=== PATIENT | female | born 1960 | race Caucasian/White ===

== ENCOUNTER 2016-03-26 09:22 | Emergency (ER) | payer SELFPAY ==
[~2016-03-26] VITALS: Ht 157.5 cm; Wt 55.0 kg
[2016-03-26 11:49] VITALS: BP 182/89
== END 2016-03-26 12:11 | disposition home or self-care (01) ==
LOC: EMS 09:24
DX: J06.9 Acute upper respiratory infection, unspecified (principal); I10 Essential (primary) hypertension; F17.210 Nicotine dependence, cigarettes, uncomplicated; F15.90 Other stimulant use, unspecified, uncomplicated; Z88.0 Allergy status to penicillin
CPT/HCPCS: 99283; 99406

== ENCOUNTER 2017-02-13 17:47 | Emergency (ER) | payer SELFPAY ==
[~2017-02-13] VITALS: Ht 160 cm; Wt 50.0 kg
[2017-02-13 19:02] LABS: INFLUENZA TYPE B NEGATIVE FOR TYPE B (NEGATIVE)
[2017-02-13 19:31] VITALS: BP 148/99
== END 2017-02-13 21:22 | disposition home or self-care (01) ==
LOC: EMS 17:48
DX: J06.9 Acute upper respiratory infection, unspecified (principal); F15.90 Other stimulant use, unspecified, uncomplicated; F17.210 Nicotine dependence, cigarettes, uncomplicated; Z88.0 Allergy status to penicillin
CPT/HCPCS: 87804; 99284

== ENCOUNTER 2018-02-10 12:00 | Emergency (ER) | payer SELFPAY | END 2018-02-10 17:40 | disposition left against medical advice (07) | LOC: EMS 15:30 | DX: M79.89 Other specified soft tissue disorders (principal); Z53.21 Procedure and treatment not carried out due to patient leaving prior to being seen by health care provider ==

== ENCOUNTER 2018-06-22 20:24 | Inpatient (IN) | payer MEDICAID ==
[~2018-06-22] VITALS: Ht 162.6 cm; Wt 55.0 kg
[2018-06-22] MEDS ORDERED: GUAI600T30 PO (20:31)
[2018-06-22 21:21] LABS: BASOPHILS % (AUTO) 0.1 % (0.0-2.0); EOSINOPHILS % (AUTO) 0.2 % (1.0-6.0); HEMATOCRIT 39.9 % (36-46); HEMOGLOBIN 13.2 g/dL (12.0-16.0); LYMPHOCYTES # (AUTO) 2.4 K/uL (1.0-4.8); LYMPHOCYTES % (AUTO) 20.9 % (22.0-44.0); MEAN CORPUSCULAR HEMOGLOBIN 26.8 pg (26.0-34.0); MEAN CORPUSCULAR VOLUME 81 fL (80-100); MONOCYTES # (AUTO) 0.9 K/uL (0.1-1.0); MONOCYTES % (AUTO) 7.7 % (2.0-9.0); NEUTROPHILS % (AUTO) 71.1 % (40.0-70.0); PLATELET COUNT (AUTO) 322 K/uL (150-450); RED BLOOD CELL COUNT(AUTO) 4.91 MIL/uL (4.00-5.20); RED CELL DISTRIBUTION WIDTH 13.6 % (11.5-14.5)
[2018-06-22 21:30] LABS: ANION GAP 6 mmol/L (8-16); CALCIUM, TOTAL 9.6 mg/dL (8.8-10.5); CARBON DIOXIDE 29 mmol/L (22-29); CHLORIDE 101 mmol/L (98-107); CREATININE 0.57 mg/dL (0.60-1.30); GLOMERULAR FILTR. RATE CALC > 60 mL/min (>60); GLUCOSE,RANDOM 158 mg/dL (70-110); POTASSIUM 4.2 mmol/L (3.5-5.1); SODIUM SERUM 136 mmol/L (136-145); UREA NITROGEN, BLOOD 6 mg/dL (7-18)
[2018-06-22 21:37] LABS: ALANINE AMINOTRANSFERASE 19 U/L (12-78); ALBUMIN 2.7 g/dL (3.4-5.0); ALKALINE PHOSPHATASE 125 U/L (46-116); ASPARTATE AMINOTRANSFERASE 14 U/L (15-37); BILIRUBIN,TOTAL 0.3 mg/dL (0.1-1.0); TOTAL PROTEIN, SERUM 7.5 g/dL (6.4-8.2)
[2018-06-22 21:54] LABS: B-TYPE NATRIURETIC PEPTIDE 29 pg/mL (0-100)
[2018-06-22] MEDS ORDERED: SODIUM CHLORIDE 0.9% 1,000 ML IV ONE (22:00)
[2018-06-22] MEDS ORDERED: ACETAMINOPHEN 500 MG TABLET PO ONE (22:00)
[2018-06-22 22:20] LABS: INFLUENZA TYPE A NEGATIVE FOR TYPE A (NEGATIVE); INFLUENZA TYPE B NEGATIVE FOR TYPE B (NEGATIVE)
[2018-06-22] MEDS ORDERED: ALBUTEROL SULFATE 2.5 MG/0.5 ML NEB SOLUTION NEB ONE (22:30)
[2018-06-22] MEDS ORDERED: IPRATROPIUM BROMIDE 0.5 MG/2.5 ML NEB SOLUTION NEB ONE (22:30)
[2018-06-22] MEDS ORDERED: LEVOFLOXACIN 750 MG/D5% WATER 150 ML IV ONE (22:45)
[2018-06-22] MEDS ORDERED: IOVERSOL 350 MG/ML 100 ML VIAL ONE (22:50)
[2018-06-22] MEDS ORDERED: SODIUM CHLORIDE 0.9% 100 ML ONE (22:50)
[2018-06-23] MEDS ORDERED: SODIUM CHLORIDE 0.9% 1,000 ML IV ONE ×2 (03:00)
[2018-06-23] MEDS ORDERED: BISACODYL 10 MG RECTAL RECTAL SUPPOSITORY PR PRN (05:00)
[2018-06-23] MEDS ORDERED: MAGNESIUM HYDROXIDE SUSPENSION 30 ML UDCUP PO PRN (05:00)
[2018-06-23] MEDS ORDERED: ONDANSETRON HCL 4 MG/2 ML VIAL IVP PRN (05:00)
[2018-06-23] MEDS ORDERED: OxyCODONE HCL/ACETAMINOPHEN 5-325 MG TABLET PO PRN (05:00)
[2018-06-23] MEDS ORDERED: BENZOCAINE/MENTHOL LOZENGE MM PRN (05:00)
[2018-06-23] MEDS ORDERED: ALBUTEROL SULFATE 2.5 MG/0.5 ML NEB SOLUTION NEB PRN (05:00)
[2018-06-23] MEDS ORDERED: IPRATROPIUM BROMIDE 0.5 MG/2.5 ML NEB SOLUTION NEB PRN (05:00)
[2018-06-23] MEDS ORDERED: ZOLPIDEM TARTRATE 5 MG TABLET PO PRN (05:00)
[2018-06-23] MEDS ORDERED: MORPHINE SULFATE 2 MG/ML SYRINGE IVP PRN (05:00)
[2018-06-23 05:18] VITALS: BP 155/81
[2018-06-23 08:17] VITALS: BP 153/83
[2018-06-23] MEDS: HEPARIN SODIUM,PORCINE 5,000 UNITS/ML VIAL SQ SCH ×2 (08:29→21:26)
[2018-06-23] MEDS: FAMOTIDINE 20 MG TABLET PO SCH (08:29)
[2018-06-23 12:31] VITALS: BP 179/88
[2018-06-23] MEDS: AmLODIPine BESYLATE 10 MG TABLET PO SCH (14:49)
[2018-06-23] MEDS: ACETAMINOPHEN 325 MG TABLET PO PRN (15:37)
[2018-06-23 15:40] VITALS: BP 176/90
[2018-06-23] MEDS ORDERED: SODIUM CHLORIDE 0.9% 0 ML IV ONE (18:44)
[2018-06-23 18:49] LABS: APPEARANCE,URINE CLEAR (CLEAR); BILIRUBIN,URINE NEGATIVE (NEGATIVE); GLUCOSE, URINE (UA) NEGATIVE (NEGATIVE); KETONES,URINE NEGATIVE (NEGATIVE); LEUKOCYTE ESTERASE ,URINE NEGATIVE (NEGATIVE); NITRATE,URINE NEGATIVE (NEGATIVE); OCCULT BLOOD,URINE TRACE (NEGATIVE); PROTEIN,URINE NEGATIVE (NEGATIVE)
[2018-06-23 18:58] LABS: BACTERIA,URINE Rare /HPF (None Seen); SQUAMOUS EPITHELIAL CELL,UR Few /LPF (None Seen); WBC,URINE 0-2 /HPF (0-5)
[2018-06-23] MEDS ORDERED: VANCOMYCIN HCL 1.25 GM in DEXTROSE 5%-WATER 250 ML IV ONE (19:30)
[2018-06-23] MEDS ORDERED: SODIUM CHLORIDE 0.9% 500 ML IV ONE (19:53)
[2018-06-23 20:18] VITALS: BP 158/80
[2018-06-23] MEDS: DOXYCYCLINE HYCLATE 100 MG CAPSULE PO SCH (21:26)
[2018-06-23] MEDS: AZTREONAM 2 GM in DEXTROSE 5%-WATER 50 ML IV SCH (21:26)
[2018-06-23] MEDS ORDERED: LEVOFLOXACIN 750 MG/D5% WATER 150 ML IV SCH (23:00)
[2018-06-24 01:01] VITALS: BP 154/81
[2018-06-24] MEDS: AZTREONAM 2 GM in DEXTROSE 5%-WATER 50 ML IV SCH ×3 (02:53→20:10)
[2018-06-24] MEDS: ACETAMINOPHEN 325 MG TABLET PO PRN (04:43)
[2018-06-24 05:09] VITALS: BP 156/78
[2018-06-24 06:15] LABS: BASOPHILS % (AUTO) 0.3 % (0.0-2.0); HEMATOCRIT 39.8 % (36-46); HEMOGLOBIN 13.3 g/dL (12.0-16.0); LYMPHOCYTES # (AUTO) 2.5 K/uL (1.0-4.8); LYMPHOCYTES % (AUTO) 26.7 % (22.0-44.0); MEAN CORPUSCULAR HGB CONC 33.4 G/dL (31.0-37.0); MEAN CORPUSCULAR VOLUME 81 fL (80-100); MONOCYTES # (AUTO) 0.9 K/uL (0.1-1.0); MONOCYTES % (AUTO) 9.2 % (2.0-9.0); NEUTROPHILS # (AUTO) 5.8 K/uL (1.8-7.7); NEUTROPHILS % (AUTO) 62.8 % (40.0-70.0); PLATELET COUNT (AUTO) 293 K/uL (150-450); RED BLOOD CELL COUNT(AUTO) 4.92 MIL/uL (4.00-5.20); RED CELL DISTRIBUTION WIDTH 13.2 % (11.5-14.5)
[2018-06-24] MEDS: VANCOMYCIN HCL 750 MG in DEXTROSE 5%-WATER 250 ML IV SCH ×3 (06:20→22:41)
[2018-06-24 06:47] LABS: ALANINE AMINOTRANSFERASE 15 U/L (12-78); ALBUMIN 2.5 g/dL (3.4-5.0); ALKALINE PHOSPHATASE 111 U/L (46-116); ANION GAP 10 mmol/L (8-16); ASPARTATE AMINOTRANSFERASE 14 U/L (15-37); BILIRUBIN,TOTAL 0.4 mg/dL (0.1-1.0); CALCIUM, TOTAL 9.6 mg/dL (8.8-10.5); CARBON DIOXIDE 26 mmol/L (22-29); CHLORIDE 103 mmol/L (98-107); CREATININE 0.36 mg/dL (0.60-1.30); GLOMERULAR FILTR. RATE CALC > 60 mL/min (>60); GLUCOSE,RANDOM 110 mg/dL (70-110); PHOSPHORUS 3.4 mg/dL (2.5-4.9); POTASSIUM 3.3 mmol/L (3.5-5.1); SODIUM SERUM 139 mmol/L (136-145); TOTAL PROTEIN, SERUM 6.6 g/dL (6.4-8.2); UREA NITROGEN, BLOOD 10 mg/dL (7-18)
[2018-06-24 08:10] VITALS: BP 160/83
[2018-06-24] MEDS: DOXYCYCLINE HYCLATE 100 MG CAPSULE PO SCH ×2 (08:11→20:13)
[2018-06-24] MEDS: AmLODIPine BESYLATE 10 MG TABLET PO SCH (08:11)
[2018-06-24] MEDS: FAMOTIDINE 20 MG TABLET PO SCH (08:11)
[2018-06-24] MEDS: HEPARIN SODIUM,PORCINE 5,000 UNITS/ML VIAL SQ SCH ×2 (08:11→20:14)
[2018-06-24 10:16] LABS: HIV 1-2 SCREEN 4TH GEN W/RFLX Non Reactive (Non Reactive)
[2018-06-24] MEDS: LORazepam 2 MG/ML VIAL IVP PRN (11:31)
[2018-06-24 12:00] VITALS: BP 145/79
[2018-06-24 15:29] VITALS: BP 152/85
[2018-06-24] MEDS ORDERED: POTASSIUM CHLORIDE 20 MEQ ER TABLET PO PRN (19:30)
[2018-06-24] MEDS ORDERED: POTASSIUM CHL 10 MEQ/WATER 50 ML IV PRN (19:30)
[2018-06-24] MEDS ORDERED: MAGNESIUM SULFATE 2 GM/WATER 50 ML IV PRN (19:30)
[2018-06-24] MEDS ORDERED: MAGNESIUM SULFATE 4 GM/WATER 100 ML IV PRN (19:30)
[2018-06-24] MEDS: MAGNESIUM OXIDE 400 MG TABLET PO PRN ×2 (20:13→22:41)
[2018-06-24] MEDS: GuaiFENesin/D-METHORPHAN/PHENYLEPH 5 ML LIQUID ORAL.SYG PO PRN (20:15)
[2018-06-24 20:25] VITALS: BP 142/73
[2018-06-25 00:11] VITALS: BP 124/75
[2018-06-25] MEDS: AZTREONAM 2 GM in DEXTROSE 5%-WATER 50 ML IV SCH ×3 (03:29→18:53)
[2018-06-25 04:00] VITALS: BP 152/96
[2018-06-25] MEDS: MAGNESIUM OXIDE 400 MG TABLET PO PRN ×4 (04:54→20:08)
[2018-06-25] MEDS: VANCOMYCIN HCL 750 MG in DEXTROSE 5%-WATER 250 ML IV SCH (05:52)
[2018-06-25 06:30] LABS: ALBUMIN 2.2 g/dL (3.4-5.0); ANION GAP 8 mmol/L (8-16); CALCIUM, TOTAL 9.9 mg/dL (8.8-10.5); CARBON DIOXIDE 26 mmol/L (22-29); CHLORIDE 103 mmol/L (98-107); CREATININE 0.53 mg/dL (0.60-1.30); GLOMERULAR FILTR. RATE CALC > 60 mL/min (>60); GLUCOSE,RANDOM 232 mg/dL (70-110); POTASSIUM 3.7 mmol/L (3.5-5.1); SODIUM SERUM 137 mmol/L (136-145); UREA NITROGEN, BLOOD 10 mg/dL (7-18); VANCOMYCIN,RANDOM 8.9 mcg/mL (25.0-50.0)
[2018-06-25 07:44] VITALS: BP 133/79
[2018-06-25] MEDS: FAMOTIDINE 20 MG TABLET PO SCH (09:01)
[2018-06-25] MEDS: HEPARIN SODIUM,PORCINE 5,000 UNITS/ML VIAL SQ SCH ×2 (09:01→20:09)
[2018-06-25] MEDS: AmLODIPine BESYLATE 10 MG TABLET PO SCH (09:01)
[2018-06-25] MEDS: DOXYCYCLINE HYCLATE 100 MG CAPSULE PO SCH ×2 (09:01→20:08)
[2018-06-25] MEDS: GuaiFENesin/D-METHORPHAN/PHENYLEPH 5 ML LIQUID ORAL.SYG PO PRN ×2 (11:01→22:50)
[2018-06-25 11:27] LABS: LEGIONELLA PNEUMO AG URINE Negative (Negative); ORGANISM ID Not indicated.; S PNEUMO SOURCE Urine; STREP PNEUMONIAE AG URINE Negative (Negative); STREP.PNEUMO BODY FLUID CULT. Not Indicated
[2018-06-25 11:37] VITALS: BP 155/76
[2018-06-25] MEDS: VANCOMYCIN HCL 1 GM/D5% WATER 200 ML IV SCH ×2 (14:42→22:36)
[2018-06-25 16:03] VITALS: BP 137/73
[2018-06-25 20:17] VITALS: BP 156/75
[2018-06-26 01:11] LABS: MTB NUCL.ACID AMPLIF W/O AFBCS Negative (Negative)
[2018-06-26] MEDS: AZTREONAM 2 GM in DEXTROSE 5%-WATER 50 ML IV SCH ×3 (03:00→18:59)
[2018-06-26 04:00] VITALS: BP 138/71
[2018-06-26 06:49] LABS: ANION GAP 9 mmol/L (8-16); CALCIUM, TOTAL 10.6 mg/dL (8.8-10.5); CARBON DIOXIDE 27 mmol/L (22-29); CHLORIDE 104 mmol/L (98-107); CREATININE 0.47 mg/dL (0.60-1.30); GLOMERULAR FILTR. RATE CALC > 60 mL/min (>60); GLUCOSE,RANDOM 109 mg/dL (70-110); POTASSIUM 4.1 mmol/L (3.5-5.1); SODIUM SERUM 140 mmol/L (136-145); UREA NITROGEN, BLOOD 12 mg/dL (7-18)
[2018-06-26] MEDS: VANCOMYCIN HCL 1 GM/D5% WATER 200 ML IV SCH ×3 (07:00→22:03)
[2018-06-26 07:25] VITALS: BP 156/82
[2018-06-26] MEDS: DOXYCYCLINE HYCLATE 100 MG CAPSULE PO SCH ×2 (09:02→22:03)
[2018-06-26] MEDS: FAMOTIDINE 20 MG TABLET PO SCH (09:02)
[2018-06-26] MEDS: AmLODIPine BESYLATE 10 MG TABLET PO SCH (09:02)
[2018-06-26] MEDS: GuaiFENesin/D-METHORPHAN/PHENYLEPH 5 ML LIQUID ORAL.SYG PO PRN ×2 (09:03→15:41)
[2018-06-26] MEDS: HEPARIN SODIUM,PORCINE 5,000 UNITS/ML VIAL SQ SCH ×2 (09:03→22:09)
[2018-06-26 11:48] VITALS: BP 133/78
[2018-06-26 14:07] LABS: QUANTIFERON+, Nil Value 0.02 IU/mL; QUANTIFERON+,Mitogen Value >10.00 IU/mL; QUANTIFERON+,TB1 Antigen Value 0.02 IU/mL; QUANTIFERON+,TB2 Antigen Value 0.02 IU/mL; QUANTIFERON, TB GOLD PLUS Negative (Negative)
[2018-06-26 15:31] VITALS: BP 113/64
[2018-06-26 20:12] VITALS: BP 142/70
[2018-06-26] MEDS: LORazepam 2 MG/ML VIAL IVP PRN (23:43)
[2018-06-27 00:28] VITALS: BP 138/61
[2018-06-27] MEDS: AZTREONAM 2 GM in DEXTROSE 5%-WATER 50 ML IV SCH ×3 (03:00→18:24)
[2018-06-27 05:02] VITALS: BP 149/75
[2018-06-27] MEDS ORDERED: SODIUM CHLORIDE 0.9% 500 ML IV ONE (05:40)
[2018-06-27] MEDS: VANCOMYCIN HCL 1 GM/D5% WATER 200 ML IV SCH (06:00)
[2018-06-27 07:15] VITALS: BP 130/63
[2018-06-27 07:27] LABS: ANION GAP 9 mmol/L (8-16); CALCIUM, TOTAL 10.1 mg/dL (8.8-10.5); CARBON DIOXIDE 27 mmol/L (22-29); CHLORIDE 104 mmol/L (98-107); GLOMERULAR FILTR. RATE CALC > 60 mL/min (>60); GLUCOSE,RANDOM 151 mg/dL (70-110); POTASSIUM 3.6 mmol/L (3.5-5.1); SODIUM SERUM 140 mmol/L (136-145); UREA NITROGEN, BLOOD 14 mg/dL (7-18); VANCOMYCIN,RANDOM 12.7 mcg/mL (25.0-50.0)
[2018-06-27] MEDS: AmLODIPine BESYLATE 10 MG TABLET PO SCH (09:40)
[2018-06-27] MEDS: HEPARIN SODIUM,PORCINE 5,000 UNITS/ML VIAL SQ SCH ×2 (09:40→21:20)
[2018-06-27] MEDS: DOXYCYCLINE HYCLATE 100 MG CAPSULE PO SCH ×2 (09:40→21:20)
[2018-06-27] MEDS: FAMOTIDINE 20 MG TABLET PO SCH (09:40)
[2018-06-27 12:10] VITALS: BP 160/81
[2018-06-27 13:00] VITALS: BP 134/70
[2018-06-27] MEDS: VANCOMYCIN HCL 1.25 GM in DEXTROSE 5%-WATER 250 ML IV SCH ×2 (14:50→23:00)
[2018-06-27 20:29] VITALS: BP 145/72
[2018-06-28 00:17] VITALS: BP 117/89
[2018-06-28] MEDS: AZTREONAM 2 GM in DEXTROSE 5%-WATER 50 ML IV SCH ×3 (03:40→18:18)
[2018-06-28] MEDS: VANCOMYCIN HCL 1.25 GM in DEXTROSE 5%-WATER 250 ML IV SCH ×3 (06:49→22:55)
[2018-06-28 07:14] LABS: ANION GAP 7 mmol/L (8-16); CALCIUM, TOTAL 10.2 mg/dL (8.8-10.5); CARBON DIOXIDE 27 mmol/L (22-29); CHLORIDE 104 mmol/L (98-107); CREATININE 0.52 mg/dL (0.60-1.30); GLOMERULAR FILTR. RATE CALC > 60 mL/min (>60); GLUCOSE,RANDOM 128 mg/dL (70-110); SODIUM SERUM 138 mmol/L (136-145); UREA NITROGEN, BLOOD 13 mg/dL (7-18); VANCOMYCIN,RANDOM 19.2 mcg/mL (25.0-50.0)
[2018-06-28] MEDS: AmLODIPine BESYLATE 10 MG TABLET PO SCH (07:45)
[2018-06-28] MEDS: FAMOTIDINE 20 MG TABLET PO SCH (07:45)
[2018-06-28] MEDS: DOXYCYCLINE HYCLATE 100 MG CAPSULE PO SCH ×2 (07:45→20:01)
[2018-06-28] MEDS: HEPARIN SODIUM,PORCINE 5,000 UNITS/ML VIAL SQ SCH ×2 (07:45→20:01)
[2018-06-28 08:10] VITALS: BP 135/75
[2018-06-28 11:20] VITALS: BP 136/64
[2018-06-28 16:32] VITALS: BP 151/7
[2018-06-28 20:27] VITALS: BP 144/68
[2018-06-29 00:11] VITALS: BP 132/67
[2018-06-29] MEDS: AZTREONAM 2 GM in DEXTROSE 5%-WATER 50 ML IV SCH ×2 (02:39→11:55)
[2018-06-29 04:38] VITALS: BP 150/73
[2018-06-29 06:10] LABS: ANION GAP 6 mmol/L (8-16); CALCIUM, TOTAL 9.9 mg/dL (8.8-10.5); CARBON DIOXIDE 29 mmol/L (22-29); CHLORIDE 104 mmol/L (98-107); CREATININE 0.51 mg/dL (0.60-1.30); GLOMERULAR FILTR. RATE CALC > 60 mL/min (>60); GLUCOSE,RANDOM 175 mg/dL (70-110); POTASSIUM 3.4 mmol/L (3.5-5.1); SODIUM SERUM 139 mmol/L (136-145); UREA NITROGEN, BLOOD 13 mg/dL (7-18)
[2018-06-29 07:48] VITALS: BP 140/65
[2018-06-29] MEDS: VANCOMYCIN HCL 1.25 GM in DEXTROSE 5%-WATER 250 ML IV SCH ×2 (08:34→16:19)
[2018-06-29] MEDS: DOXYCYCLINE HYCLATE 100 MG CAPSULE PO SCH (08:34)
[2018-06-29] MEDS: AmLODIPine BESYLATE 10 MG TABLET PO SCH (08:34)
[2018-06-29] MEDS: FAMOTIDINE 20 MG TABLET PO SCH (08:34)
[2018-06-29] MEDS: HEPARIN SODIUM,PORCINE 5,000 UNITS/ML VIAL SQ SCH ×2 (08:35→08:47)
[2018-06-29 11:18] VITALS: BP 137/67
[2018-06-29 15:18] VITALS: BP 136/65
[2018-06-29] MEDS ORDERED: POTASSIUM CHLORIDE 20 MEQ ER TABLET PO ONE (17:30)
== END 2018-06-29 18:25 | disposition left against medical advice (07) | DRG 720 ==
LOC: EMS 20:25 → 5N 06-23 03:20
PROVIDERS: ADMIT Internal Medicine; ATTEND Internal Medicine
DX: A41.9 Sepsis, unspecified organism (principal); A19.9 Miliary tuberculosis, unspecified; E44.0 Moderate protein-calorie malnutrition; J18.0 Bronchopneumonia, unspecified organism; J81.1 Chronic pulmonary edema; R73.9 Hyperglycemia, unspecified; F17.200 Nicotine dependence, unspecified, uncomplicated; F15.90 Other stimulant use, unspecified, uncomplicated; L29.9 Pruritus, unspecified; Z78.9 Other specified health status; Z88.0 Allergy status to penicillin; Z72.89 Other problems related to lifestyle; Z71.41 Alcohol abuse counseling and surveillance of alcoholic; Z68.20 Body mass index [BMI] 20.0-20.9, adult; Z53.21 Procedure and treatment not carried out due to patient leaving prior to being seen by health care provider
CPT/HCPCS: 71260; 82164; 83036; 83735; 84100; 84145; 86038; 86403; 86480; 86635; 86698; 86738; 87015; 87040; 87070; 87101; 87206; 87389; 87449; 87556; 87804; 87899; 93005; 94640; G0378; J1644; J1956; J2060; J3370; J3475; J3490; J7040; J7050; J7060

== ENCOUNTER 2018-08-10 18:45 | Emergency (ER) | payer SELFPAY ==
[~2018-08-10] VITALS: Ht 162.6 cm; Wt 52.3 kg
[~2018-08-10 18:45] MED LIST: GUAI600T30 PO
[2018-08-10 18:55] VITALS: BP 160/87
== END 2018-08-10 19:20 | disposition left against medical advice (07) ==
LOC: EMS 18:47
DX: R05 Cough (principal); R00.0 Tachycardia, unspecified; I10 Essential (primary) hypertension; F15.90 Other stimulant use, unspecified, uncomplicated; F41.9 Anxiety disorder, unspecified; Z88.0 Allergy status to penicillin; Z87.891 Personal history of nicotine dependence; Z53.20 Procedure and treatment not carried out because of patient's decision for unspecified reasons